=== PATIENT | female | born 1960 | race Caucasian/White ===

== ENCOUNTER → 2019-02-16 08:26 | Outpatient (CLI) | payer OTHER ==
[~2019-02-16 08:26] MED LIST: ABILIFY10 MG PO; BUTALB-APAP-CA1 EACH PO; CELEBREX200 MG PO; CYCLOBENZAPRINE10 MG PO; DEXTROAMPHETAMI10 M1 PO; IMITREX100 MG PO; LASIX20 MG PO; LASIX40 MG PO; LEXAPRO20 MG PO; LUNESTA2 M1 PO; METOPROLOL TART25 MG PO; PHENERGAN25 M1 PO; POTASSIUM CHLO10 ME1 PO; PRINIVIL20 MG PO; XANAX1 MG PO
[2019-03-05 07:52] VITALS: BMI 39.9
== END | disposition home or self-care (01) ==
LOC: D.HCCARDIO 08:26
PROVIDERS: ATTEND Internal Medicine Cardiovascular Disease
DX: I20.9 Angina pectoris, unspecified (principal)

== ENCOUNTER 2019-03-05 06:52 | Outpatient (CLI) | payer OTHER ==
[~2019-03-05] VITALS: Ht 157.5 cm; Wt 99.1 kg
--- NOTE | ~2019-03-05 | HEMODYNAMI ---
PATIENT:KEE AGUILERA MEDICAL RECORD: [id number] : 64 LOCATION:[facility] ADMISSION DATE: 03/05/19 Generatedon:03/05/201910:08 Patient name: KEE AGUILERA Patient #: [id number] SSN: [id number] : 1960 Date of study: 03/05/2019 Page: Of Hemodynamic Procedure Report Patient Data Patient Demographics Procedure consent was obtained First Name: KEE Gender: Female Last Name: ALE : 1960 Patient #: [id number] Age: 58 year(s) Race: Unknown SSN: [id number] Additional ID: [id number] Contact details [address]: [address] [place] [address] State: [place] City: [place] Zip code: [address] Past Medical History Performed procedures and imaging results Date Procedure Procedure Results Comments Stress testing with Positive SPECT MPI Allergies Allergen Reaction Date Comments Reported Other allergy 03/05/2019 CRYS CRUZ Admission Admission Data Admission Date: 03/05/2019 Admission Time: 6:52 Arrival Date: 03/05/2019 Arrival Time: 0:00 Insurance Payor: Private health insurance [facility] #: [id number] Height (in.): 61.81 BSA: 1.98 (m2) Height (cm.): 157 BMI: 40.16 (kg/m2) Weight (lbs.): 218.26 Weight (kg.): 99 Lab Results Lab Result Date: 03/05/2019 Lab Result Time: 0:00 Biochemistry Name Units Result Min Max BUN mg/dl 13 --(--*-)-- 7 18 Creatinine mg/dl 1 --(--*-)-- 0.6 1.3 eGFR ml/min 61.49243 *-(----)-- 90 120 NONAFRICAN CBC Name Units Result Min Max Hematocrit % 32.1 *-(----)-- 42 54 Hemoglobin g/dl 10.2 *-(----)-- 13.5 17.5 Procedure Procedure Types Cath Procedure Diagnostic Procedure [facility] w/Coronaries Procedure Description Procedure Date Procedure Date: 03/05/2019 Procedure Start Time: 9:55 Procedure End Time: 10:07 Procedure Staff Name Function Abdon Blackburn MD Performing Physician Elke Rivera RT Monitor Pratibha Salinas RT Scrub Jim Mcqueen RN Nurse Procedure Data Cath Procedure Fluoroscopy Diagnostic fluoroscopy Total fluoroscopy Time: 1.9 time: 1.9 min min Diagnostic fluoroscopy Total fluoroscopy dose: 413 dose: 413 mGy mGy Contrast Material Contrast Material Type Amount (ml) Isovue 300 51 Entry Location Entry Primary Successful Side Size Upsize Upsize Entry Closure Wood ccessful Closure Location (Fr) 1 (Fr) 2 (Fr) Remarks Device Remarks Radial Right 6 Fr Mechanical artery Short Compression Estimated blood loss: 10 ml Diagnostic catheters Device Type Used For End Catheter Placement DIAGNOSTIC Clifford 110cm 5 Procedure Fr catheter ([id number]) Procedure Complications No complications Procedure Medications Medication Administration Route Dosage Oxygen etCO2 Nasal cannula 2 l/min Lidocaine 2% added to field 20 Heparin Flush Bag added to field 2 bags (1000units/500ml NS) 0.9% NaCl I.V. 100 ml/hr Radial Cocktail I.A. 1 syringe (Verapamil 2mg/Nitro 400mcg/Heparin 1500units) Versed I.V. 2 mg Fentanyl I.V. 100 mcg Versed I.V. 2 mg Fentanyl I.V. 100 mcg Versed I.V. 1 mg Hemodynamics Rest BSA: 1.98 (m2) O2 Consumption: Estimated: 181.97 (ml/min) O2 Consumption indexed : Estimated:91.9 (ml/min/m) Heart Rate: 59 (bpm) Pressure Samples Time Site Value (mmHg) Purpose Heart Use Rate(bpm) 9:57 LV 86/0,11 Snapshot 80 Gradients Valve Time Site Site Mean SEP/DFP Peak To Heart Use 1 2 (mmHg) (sec/min) Peak Rate (mmHg) (bpm) Aortic 9:58 LV AO 88 Snapshots Pre Cath Intra NCS Post Cath Vital Signs Time Heart Resp SPO2 etCO2 NIBP Rhythm Pain Sedation Rate (ipm) (%) (mmHg) (mmHg) Status Level (bpm) 9:48:03 59 23 100 33 102/65(75) NSR 0 (11) 10(A) , No pain 9:53:03 56 12 96 30 Measuring NSR 0 (11) 10(A) , No pain 9:53:04 56 12 97 30 124/65(83) NSR 0 (11) 10(A) , No pain 9:57:08 88 14 99 35.3 90/65(86) NSR 0 (11) 10(A) , No pain 10:02:03 61 17 96 38.3 115/61(85) NSR 0 (11) 10(A) , No pain 10:05:09 58 17 98 32.1 123/63(88) NSR 0 (11) 10(A) , No pain Medications Time Medication Route Dose Verified Delivered Reason Notes Effectiveness by by 9:47:03 Oxygen etCO2 2 l/min Abdon Buffie used for Nasal Alexey Mcqueen RN procedure cannula 9:47:11 Lidocaine 2% added 20ml Abdon Abdon for local to vial Alexey Blackburn MD anesthetic field 9:47:17 Heparin Flush added 2 bags Abdon Abdon used for Bag to Alexey Blackburn MD procedure (1000units/500ml field NS) 9:47:26 0.9% NaCl I.V. 100 Abdon Buffie Per ml/hr Alexey Mcqueen RN physician 9:51:42 Versed I.V. 2 mg Abdon Buffie for sedation Alexey Mcqueen RN 9:51:47 Fentanyl I.V. 100 mcg Abdon Buffie for sedation Alexey Mcqueen RN 9:55:21 Versed I.V. 2 mg Abdon Buffie for sedation Alexey Mcqueen RN 9:55:25 Fentanyl I.V. 100 mcg Abdon Buffie for sedation Alexey Mcqueen RN 9:56:34 Radial Cocktail I.A. 1 Abdon Abdon for (Verapamil syringe Alexey Blackburn MD vasodilation 2mg/Nitro 400mcg/Heparin 1500units) 10:00:43 Versed I.V. 1 mg Abdon Buffie for sedation Alexey Mcqueen RN Procedure Log Time Note 9:16:55 Informed consent obtained and on chart 9:19:20 Jim Mcqueen RN sent for patient. Start room use. 9:19:23 Procedure Status Elective Heart Cath (OP). 9:19:24 Time tracking: Regular hours (M-F 7:00 - 5:00) 9:19:27 Plan of Care:Hemodynamics will remain stable., Cardiac rhythm will remain stable., Comfort level will be maintained., Respiratory function will remain adequate., Patient/ family verbilizes understanding of procedure., Procedure tolerated without complication., Recovers from procedure without complications.. 9:21:25 Patient allergic to Other allergyAMBIEN, MORPHINE 9:22:49 Patient Weight : 218.26 lbs 9:22:53 Patient Height : 61.81 inches 9:22:59 Arrival Date: 03/05/2019 12:00:00 AM 9:23:41 Insurance Payor : Private health insurance 9::37 Lab Result : Creatinine 1 mg/dl 9::37 Lab Result : BUN 13 mg/dl 9::37 Lab Result : eGFR NONAFRICAN 61.21356 ml/min 9::37 Lab Result : Hematocrit 32.1 % 9::37 Lab Result : Hemoglobin 10.2 g/dl 9:46:44 Vital chart was started 9:47:03 Oxygen 2 l/min etCO2 Nasal cannula was administered by Jim Mcqueen RN; used for procedure; 9:47:11 Lidocaine 2% 20ml vial added to field was administered by Abdon Blackburn MD; for local anesthetic; 9:47:17 Heparin Flush Bag (1000units/500ml NS) 2 bags added to field was administered by Abdon Blackburn MD; used for procedure; 9:47:26 0.9% NaCl 100 ml/hr I.V. was administered by Jim Mcqueen RN; Per physician; 9:47:51 Baseline sample Acquired. 9:47:53 Warm blankets applied, and jony hugger turned on for patient comfort. 9:47:58 Patient received from Pre/Post Procedure Room to CCL 1 Alert and oriented. Tansferred to table in Supine position. 9:47:59 Correct patient and procedure confirmed by team. 9:47:59 ECG and BP/O2 sat monitors applied to patient. 9:48:00 Baseline sample Acquired. 9:48:04 Rhythm: sinus bradycardia 9:48:05 Full Disclosure recording started 9:48:05 Pre-op teaching completed and patient verbalized understanding. 9:48:05 Pre-procedure instructions explained to patient. 9:48:10 Family in patients room. 9:48:12 Patient NPO since Midnight. 9:48:13 Is the patient allergic to Iodine/contrast media? No. 9:48:14 Is patient on blood thinner?No 9:48:16 Patient diabetic? No. 9:48:27 Patient not . Patient is over age 55. 9:48:29 Previous problem with sedation/anesthesia? No ? 9:48:30 Snore? Yes 9:48:31 Sleep apnea? No 9:48:32 Deviated septum? No 9:48:33 Opens mouth fully? Yes 9:48:34 Sticks out tongue? Yes 9:48:36 Airway obstruction? Yes ASTHMA 9:48:38 Dentures? No ? 9:48:51 Pre procedure: right dorsailis pedis pulse 1+ Palpable, but thready & weak; easily obliterated 9:49:06 IV patent on arrival in right antecubital with 0.9% NaCl at [facility]. 9:49:08 Lab results completed and on chart. 9:49:11 Right Radial & Right Groin area was prepped with chlora-prep and draped in sterile fashion 9:49:12 Alarms reviewed by R. N. 9:49:12 Sharps counted by scrub and verified by R.N. 9:49:16 Use device set Radial Dx or PCI 9:49:17 ACIST Syringe (95513) opened to sterile field. 9:49:18 Bag Decanter (2002S) opened to sterile field. 9:49:18 ACIST Hand Control (35390) opened to sterile field. 9:49:19 ACIST Manifold (96634) opened to sterile field. 9:49:19 Tegaderm 4 x 4 (1626W) opened to sterile field. 9:49:21 Medline Cath Pack ([id number]) opened to sterile field. 9:49:21 MBrace Wrist Support ([id number]) opened to sterile field. 9:49:23 EMERALD Guide Wire (599-154) opened to sterile field. 9:49:24 SHEATH 6FR RAIN (1122668) opened to sterile field. 9:50:14 --------ALL STOP TIME OUT------ 9:50:15 Final Timeout: patient, procedure, and site verified with staff and physician. All members of the team are in agreement. 9:50:16 Right Radial & Right Groin site verified by team. 9:50:19 Fire Safety Assessment: A--An alcohol-based skin anteseptic being used preoperatively., C--Open oxygen or nitrous oxide is being used., D--An ESU, laser, or fiber-optic light is being used. 9:50:22 Physical assessment completed. ASA score P 2 - A patient with mild systemic disease as per Abdon Blackburn MD. 9:50:28 2) 60-89 Mildly reduced kidney function, and other findings (as for stage 1) point to kidney disease. 9:50:31 Maximum allowable contrast dose (3.7 X eGFR X 0.75)169 ml. 9:50:35 Sedation plan: IV Moderate Sedation Medication:Versed, Fentanyl 9:50:58 Zero performed for pressure channel P1 9:51:42 Versed 2 mg I.V. was administered by Jim Mcqueen RN; for sedation; 9:51:47 Fentanyl 100 mcg I.V. was administered by Jim Mcqueen RN; for sedation; 9:53:30 Procedure started. 9:55:04 Local anesthetic to right radial artery with Lidocaine 2% by Abdon Blackburn MD.INITIAL ACCESS ONLY 9:55:21 Versed 2 mg I.V. was administered by Jim Mcqueen RN; for sedation; 9:55:25 Fentanyl 100 mcg I.V. was administered by Jim Mcqueen RN; for sedation; 9:55:35 A 6 Fr Short sheath was inserted into the Right Radial artery 9:56:04 A DIAGNOSTIC Clifford 110cm 5 Fr catheter ([id number]) was advanced over the wire and used for Procedure. 9:56:34 Radial Cocktail (Verapamil 2mg/Nitro 400mcg/Heparin 1500units) 1 syringe I.A. was administered by Abdon Blackburn MD; for vasodilation; 9:57:30 LV gram done using CHAU 9:57:39 Injector settings: Ml/sec: 7, Volume: 15, 9:57:43 LV hemodynamics recorded. 9:58:27 EF : 60 % 9:59:10 RCA angiography performed. 10:00:35 LCA angiography performed. 10:00:37 Catheter removed. 10:00:43 Versed 1 mg I.V. was administered by Jim Mcqueen RN; for sedation; 10:01:23 Procedure ended.(Physican Out) 10:01:44 ZEPHYR REGULAR TR BAND (004335) opened to sterile field. 10:01:55 Sheath removed intact; hemostasis achieved with Mechanical Compression to the Right Radial artery. 10:03:26 Fluoroscopy time 01.90 minutes. 10:03:31 Fluoroscopy dose: 413 mGy 10:03:31 Flurop Dose total: 413 10:03:41 Dose Area Product 88324 mGy/cm. 10:03:46 Contrast amount:Isovue 300 51ml. 10:03:48 Maximum allowable dose exceeded? No. 10:03:49 Sharps counted by scrub and verified by R.N. 10:03:51 Emery band inflated with 6cc of air. 10:03:54 Post-procedure physical assessment completed. ASA score P 2 - A patient with mild systemic disease as per Abdon Blackburn MD. 10:05:11 Post procedure rhythm: sinus rhythm 10:05:14 Estimated blood loss: 10 ml 10:05:16 Post procedure instruction explained to patient.Patient verbalizes understanding. 10:05:16 Patient needs reinforcement of post procedure teaching. 10:07:03 Procedure and supply charges have been captured, reviewed, submitted and are correct. 10:07:06 Procedure Complication : No complications 10:07:07 Vital chart was stopped 10:07:07 See physician's report for complete and final results. 10:07:10 Report given to Pre/Post Procedure Room. 10:07:12 Patient transfered to Pre/Post Procedure Room with Bed. 10:07:13 Procedure ended. 10:07:13 Full Disclosure recording stopped 10:07:18 End room use (Document Last) Device Usage Item Name Manufacture Quantity Catalog Hospital Part Current Minima l Lot# / Number Charge Number Stock Stock Serial# Code ACIST Acist 1 53631 [id number] [id number] [id number] 20 Syringe Medical (39926) Systems Inc Bag Microtek 1 445133 83710 589924 5 Decanter Medical Inc. () ACIST Hand Acist 1 33411 101664 206622 359463 5 Control Medical (75034) Systems Inc ACIST Acist 1 60846 206214 603681 557706 5 Manifold Medical (98486) Systems Inc Tegaderm 4 3M 1 1626W 933465 132313 851156 5 x 4 (1626W) Medline Medline 1 [id number] 524477 69969 633415 5 Cath Pack ([id number]) MBrace Advanced 1 140-0250-00 655947 03995 031240 5 Wrist Vascular Support Dynamics ([id number]) EMERALD Cardinal 1 502455 596487 374363 891409 5 Guide Wire Health (502455) SHEATH 6FR Cardinal 1 [id number] 697416 3743814 588417 5 RAIN Health (0296678) DIAGNOSTIC Terumo 1 40-5013 424279 753061 631754 5 Clifford 110cm 5 Fr catheter (197533) ZEPHYR Cardinal 1 151455 566190 6226124 721228 5 REGULAR TR Health BAND (676057) Signature Audit [place] Stage Time Signature Unsigned Intra-Procedure 03/05/2019 Elke Rivera 10:08:55 AM RT(R) Signatures Performing Physician : Signature : Abdon Blackburn MD Date : Time : Monitor : Elke Rivera Signature : RT Date : Time : Nurse : Jim Mcqueen RN Signature : Date : Time : [facility] [address] [place] [address]
[2019-03-05] MEDS ORDERED: METOPROLOL TART25 MG PO (07:31)
[2019-03-05] MEDS ORDERED: XANAX1 MG PO (07:31)
[2019-03-05] MEDS ORDERED: IMITREX100 MG PO (07:31)
[2019-03-05] MEDS ORDERED: DEXTROAMPHETAMI10 M1 PO (07:32)
[2019-03-05] MEDS ORDERED: BUTALB-APAP-CA1 EACH PO ×2 (07:33)
[2019-03-05] MEDS ORDERED: CELEBREX200 MG PO (07:34)
[2019-03-05] MEDS ORDERED: LUNESTA2 M1 PO (07:34)
[2019-03-05] MEDS ORDERED: PRINIVIL20 MG PO (07:34)
[2019-03-05] MEDS ORDERED: PHENERGAN25 M1 PO (07:34)
[2019-03-05] MEDS ORDERED: LEXAPRO20 MG PO (07:35)
[2019-03-05] MEDS ORDERED: ABILIFY10 MG PO (07:35)
[2019-03-05] MEDS ORDERED: POTASSIUM CHLO10 ME1 PO (07:35)
[2019-03-05] MEDS ORDERED: LASIX20 MG PO (07:36)
[2019-03-05] MEDS ORDERED: CYCLOBENZAPRINE10 MG PO (07:36)
[2019-03-05] MEDS ORDERED: LASIX40 MG PO (07:37)
[2019-03-05 07:52] VITALS: BP 130/70; Ht 157.5 cm; Wt 99.1 kg
[2019-03-05 08:28] LABS: BASOPHILS 0.6 % (0-2); HEMATOCRIT 32.1 % (36.0-48.0); HEMOGLOBIN 10.2 g/dL (12-16); IMMATURE GRANULOCYTES 0.3 % (0-5); LYMPHOCYTES 32.2 % (15-50); MCH 26.4 pg (26.0-34.0); MCHC 31.8 g/dL (31.0-37.0); MCV 82.9 fL (80.0-100.0); MEAN PLATELET VOLUME 9.6 fL (7.4-10.4); MONOCYTES 8.8 % (2-11); NEUTROPHILS 56.1 % (40-80); PLATELET COUNT 217 10x3/uL (130-400); RBC 3.87 10x6/uL (4.00-5.40); RDW 14.4 % (11.5-14.5); WBC 3.5 10x3/uL (4.8-10.8)
[2019-03-05 08:39] LABS: LDL-HDL RATIO 0.9 ratio (1.5-3.5)
[2019-03-05 08:46] LABS: ANION GAP 13.7 mmol/L (8-16); CALCIUM 8.4 mg/dL (8.5-10.1); POTASSIUM - SERUM 4.7 mmol/L (3.5-5.1)
--- NOTE | 2019-03-05 10:25 | NUR ---
RECEIVED PT FROM LIVESTOCK EXHIBITOR.PT IS ALERT AND DENIES ANY C/O CHEST PAIN OR NAUSEA. Z BAND CDI TO RIGHT WRIST,FINGERS WARM AND CAP REFILL IS BRISK. VSS. HOB ELEVATED AND SANDWICH/ PO FLUIDS SERVED.
--- NOTE | 2019-03-05 10:28 | NUR ---
PT SITTING UP IN BED EATING SANDWICH AND MARKELL PO FLUIDS WITH NO NAUSEA. Z BAND IS CDI, FINGERS WARM AND CAP REFILL IS BRISK. PT DENIES ANY NV DEFICIT TO HAND. VSS. CALL LIGHT IN REACH.
--- NOTE | 2019-03-05 10:55 | NUR ---
PT IS ALERT, DENIES ANY C/O. Z BAND IS CDI, FINGERS WARM AND CAP REFILL IS BRISK. VSS. PT DENIES NEEDS AT THIS TIME.
--- NOTE | 2019-03-05 11:38 | NUR ---
4 CC OF AIR WEANED FROM TR BAND WITH NO BLEEDING NOTED. FINGERS WARM AND CAP REFILL IS BRISK.
--- NOTE | 2019-03-05 11:46 | NUR ---
3 CC OF AIR WEANED FROM TR BAND WITH NO BLEEDING NOTED. FINGERS WARM AND CAP REFILL IS BRISK. PT IS ALERT AND DENES ANY C/O. VSS.
--- NOTE | 2019-03-05 12:01 | NUR ---
ALL REMAINING AIR WEANED FROM Z BAND WITH NO BLEEDING NOTED. FINGERS WARM AND CAP REFILL IS BRISK. PT SITTING UP IN BED, VISITING WITH FAMILY AT BEDSIDE. IS ALERT AND DENIES ANY C/O. VSS, CALL LIGHT IN REACH.
--- NOTE | 2019-03-05 12:21 | NUR ---
Z BAND REMOVED WITH NO BLEEDING NOTED. 2X2 AND TEGADERM APPLIED TO SITE. WRIST IMMOBILIZER IN PLACE. FINGERS WARM AND RADIAL PULSE PALPABLE.
--- NOTE | 2019-03-05 12:40 | NUR ---
IV HAS BEEN DC'D WITH CATH INTACT. DC INSTRUCTIONS REVIEWED WITH PT WHO VERBALIZES UNDERSTANDING. DRESSING REMAINS CDI TO RIGHT WRIST, RADIAL PULSE PALPABLE, PT DENIES ANY NV DEFICIT TO HAND. PT DRESSING FOR DC.
--- NOTE | 2019-03-05 12:51 | NUR ---
PT HAS DRESSED FOR DC TO HOME. IS ALERT AND DENIES ANY C/O. DRESSING REMAINS CDI TO RIGHT WRIST, WRIST IMMOBILIZER IN PLACE. PT DENIES ANY C/O. HAS VOIDED QS AND IS ESCORTED TO PRIVATE AUTO VIA WC BY NURSE WITH FRIEND DRIVING HER HOME. PT HAS ALL PERSONAL BELONGINGS AND DC INSTRUCTIONS AT TIME OF DISCHARGE.
== END 2019-03-05 12:50 | disposition home or self-care (01) ==
LOC: D.CATH 06:52
PROVIDERS: ATTEND Internal Medicine Cardiovascular Disease
DX: I20.9 Angina pectoris, unspecified (principal); Z01.812 Encounter for preprocedural laboratory examination